=== PATIENT | female | born 2005 | race Caucasian/White ===

== ENCOUNTER 2025-03-28 05:35 | Emergency (ER) | payer OTHER ==
[~2025-03-28] VITALS: Ht 167.6 cm; Wt 49.9 kg
[2025-03-28 07:31] LABS: CALCIUM, SERUM 9.3 mg/dL (8.5-10.1); CREATININE 0.7 mg/dL (0.6-1.3); SODIUM SERUM 139.0 mmol/L (136-145); UREA NITROGEN, BLOOD 9.0 mg/dL (7-18)
[2025-03-28 07:34] LABS: PLATELET COUNT (AUTO) 352 K/uL (150-450); RED BLOOD CELL COUNT(AUTO) 4.71 MIL/uL (4.0-5.2); RED CELL DISTRIBUTION WIDTH 12.8 % (11.5-15.0); WHITE BLOOD COUNT (AUTO) 9.2 K/uL (4.3-11.0)
[2025-03-28 07:37] LABS: ASPARTATE AMINOTRANSFERASE 23.0 U/L (15-37); TOTAL PROTEIN, SERUM 8.3 g/dL (6.4-8.2)
[2025-03-28] MEDS: IV NS 0.9% 1,000 ML BAG IV ONE (08:00)
[2025-03-28] MEDS: KETOROLAC TROMETHAMINE 15 MG/ML VIAL IV ONE (08:00)
[2025-03-28] MEDS: ONDANSETRON HCL/PF 4 MG/2 ML VIAL IVP ONE (08:05)
[2025-03-28] MEDS ORDERED: ONDANSETRON HCL/PF 4 MG/2 ML VIAL ONE (08:07)
[2025-03-28] MEDS ORDERED: KETOROLAC TROMETHAMINE 15 MG/ML VIAL ONE (08:07)
[2025-03-28 08:38] LABS: APPEARANCE,URINE CLOUDY (CLEAR); BLOOD, URINE 3+ Ery/uL (NEGATIVE); LEUKOCYTE ESTERASE ,URINE 2+ (NEGATIVE); NITRITE, URINE NEGATIVE (NEGATIVE); UGLUCOSE NEGATIVE (NEGATIVE)
[2025-03-28 08:47] LABS: ADD URINE CULTURE YES; SQUAMOUS EPITHELIAL CELL,UR Rare /HPF (None Seen)
[2025-03-28] MEDS ORDERED: SULF1TAB48 PO (09:03)
[2025-03-28] MEDS ORDERED: ONDA4TAB11 PO (09:03)
[2025-03-28 09:17] VITALS: BP 129/91; TEMP 98.5; O2SAT 98
== END 2025-03-28 09:17 | disposition home or self-care (01) ==
LOC: ER 05:45
DX: N12 Tubulo-interstitial nephritis, not specified as acute or chronic (principal); R10.A3 Flank pain, bilateral; E83.59 Other disorders of calcium metabolism; N29 Other disorders of kidney and ureter in diseases classified elsewhere; N32.89 Other specified disorders of bladder
CPT/HCPCS: 99285; 74176; 96374; 96361; 96375; 85025; 80048; 87086; 83690; 80076; 84703; 81001; 36415; 84702; J1885; J2405; J7030; 87186-TC